=== PATIENT | male | born 1940 | race Caucasian/White ===

== ENCOUNTER → 2023-03-16 | Outpatient (CLI) | payer MEDICARE ==
[~2023-03-16] MED LIST: ALBU8.5H INH; BLACK CHERRY PO; DIFL200T PO; HOME MED LIST COMPLETE! XX SCH; LEVO1TAB39 PO; LIDOCAINE 1% MDV 20ML VIAL As Ordered ONE; LISI20TA33 PO; NAPR-885 PO; OMEP1CAP73 PO; TREL1AER INH
[2023-03-16 07:50] VITALS: BP 143/68; TEMP 97.7; O2SAT 98
[2023-03-16 08:22] LABS: HEMATOCRIT 35.6 % (42.0-52.0); HEMOGLOBIN 11.5 g/dl (13.5-17.5); MEAN CORPUSCULAR HEMOGLOBIN 30.6 pg (27.0-33.0); MEAN CORPUSCULAR HGB CONC 32.3 g/dl (32.0-36.5); MEAN CORPUSCULAR VOLUME 94.7 fl (80.0-96.0); PLATELET COUNT, AUTOMATED 313 10^3/uL (150-450); RED BLOOD COUNT 3.76 10^6/uL (4.30-6.10); WHITE BLOOD COUNT 7.9 10^3/uL (4.0-10.0)
[2023-03-16 08:33] LABS: INR 1.07; PROTHROMBIN TIME 13.6 SECONDS (12.5-14.5)
[2023-03-16 08:34] LABS: PARTIAL THROMBOPLASTIN TIME 28.2 SECONDS (24.8-34.2)
== END ==
LOC: M IRPRO 07:33
PROVIDERS: ATTEND Internal Medicine Hematology & Oncology
DX: R91.1 Solitary pulmonary nodule (principal); C76.0 Malignant neoplasm of head, face and neck